=== PATIENT | female | born 1970 | race Caucasian/White ===

== ENCOUNTER 2022-05-16 20:27 | Emergency (ER) | payer BC ==
[~2022-05-16] VITALS: Ht 170.2 cm; Wt 115.0 kg
[2022-05-16 20:39] VITALS: BP 167/113
--- NOTE | 2022-05-16 23:26 | NUR ---
Patient resting comfortably on gurney awaiting provider. No needs at this time.
[2022-05-16] MEDS ORDERED: orphenadrine citrate 60mg/2ml inj. IM ONE (23:40)
[2022-05-16] MEDS ORDERED: ketorolac trometh. 30mg/ml inj. IM ONE (23:40)
[2022-05-16] MEDS ORDERED: CYCL-1 PO (23:41)
== END 2022-05-17 00:11 | disposition home or self-care (01) ==
LOC: ER 20:28
DX: M54.6 Pain in thoracic spine (principal); M54.59 Other low back pain; M54.2 Cervicalgia; Z88.5 Allergy status to narcotic agent
CPT/HCPCS: 96372; 99284; J1885; J2360